=== PATIENT | female | born 1960 | race Caucasian/White ===

== ENCOUNTER 2024-04-30 09:51 | Day surgery (SDC) | payer MEDICARE, OTHER ==
[~2024-04-30] VITALS: Ht 165.1 cm; Wt 60.8 kg
[~2024-04-30 09:51] MED LIST: Lactated Ringer's 1,000 ML IV ONE; propofoL 50 ML IV ONE
[2024-04-30] MEDS ORDERED: URITRAX47 GM (10:00)
[2024-04-30] MEDS ORDERED: Cefadroxil500 MG (10:00)
[2024-04-30] MEDS ORDERED: PANT40 (10:00)
[2024-04-30] MEDS ORDERED: COGNIQUIL CAPS1 EACH (10:00)
[2024-04-30] MEDS ORDERED: GREEN TEA EXT1000 GM (10:01)
[2024-04-30] MEDS ORDERED: FOLI1 (10:01)
[2024-04-30] MEDS ORDERED: [UNRECOGNIZED DRUG - OTHER] (10:01)
[2024-04-30] MEDS ORDERED: POLY500 (10:02)
[2024-04-30] MEDS ORDERED: CALCIUM 500 MG1 EAC2 (10:02)
[2024-04-30] MEDS ORDERED: TURMERIC CURCU1 EACH (10:02)
[2024-04-30] MEDS ORDERED: MERIBIN5 MG (10:02)
[2024-04-30] MEDS ORDERED: APPLE CIDER VI1 EAC2 (10:03)
[2024-04-30] MEDS ORDERED: Ondansetron HCl 2 MG / ML 2ML Vial ONE (10:47)
[2024-04-30] MEDS ORDERED: Lactated Ringer's 1,000 ML IV ONE (10:49)
== END 2024-04-30 11:51 | disposition home or self-care (01) ==
LOC: ORSCSDS 09:51
PROVIDERS: Specialist
PROC: 0DB98ZX Excision of Duodenum, Via Natural or Artificial Opening Endoscopic, Diagnostic (ICD-10-PCS; principal; 2024-04-30 11:00)
PROC: 0DB58ZX Excision of Esophagus, Via Natural or Artificial Opening Endoscopic, Diagnostic (ICD-10-PCS; principal; 2024-04-30 11:00)
PROC: 0DB68ZX Excision of Stomach, Via Natural or Artificial Opening Endoscopic, Diagnostic (ICD-10-PCS; principal; 2024-04-30 11:00)
DX: R10.13 Epigastric pain (principal); K21.9 Gastro-esophageal reflux disease without esophagitis; Z87.11 Personal history of peptic ulcer disease; Z87.891 Personal history of nicotine dependence; Z79.899 Other long term (current) drug therapy
CPT/HCPCS: 88305; 88342; J2405; J2704; J7120